=== PATIENT | male | born 1965 | race Caucasian/White ===

== ENCOUNTER 2023-04-26 14:49 | Outpatient (CLI) | payer BC, SELFPAY | END 2023-04-26 14:50 | disposition home or self-care (01) | LOC: LONREF 14:49 | PROVIDERS: Visit Provider Family Medicine | DX: E78.5 Hyperlipidemia, unspecified (principal); I10 Essential (primary) hypertension | CPT/HCPCS: 80061 ==

== ENCOUNTER 2024-02-27 22:10 | Emergency (ER) | payer BC, SELFPAY ==
[2024-02-27 22:17] VITALS: BP 206/98; PULSE 68; RESP 18; TEMP 36.3; O2SAT 96; BMI 38.0
--- NOTE | 2024-02-27 22:44 | ED_ITS ---
HPI - General Adult General Time Seen by Provider: 22:44 Date Seen: 02/27/24 Chief complaint: Ear/Nose/Throat Problem Stated complaint: sinus infection Time Seen by Provider: 02/27/24 22:44 Source: patient, RN notes reviewed and old records reviewed Mode of arrival: ambulatory Limitations: no limitations History of Present Illness HPI narrative: 58-year-old male who comes in today with upper respiratory symptoms for 4 days. He complains of nasal congestion and feeling of facial fullness, sore throat, cough. No fevers, no nausea, vomiting, diarrhea. Has been taking Tylenol and started using Afrin today. Concerned about possible sinus infection. Related Data Previous Rx's Medication Instructions Recorded atorvastatin 80 mg tablet 80 mg PO QHS #90 tabs 03/22/23 metoprolol succinate 50 mg 75 mg (1.5 x 50 mg) PO QDAY #135 04/08/23 tablet,extended release 24 hr tabs lisinopril 20 mg tablet 20 mg PO BID #180 tabs 04/26/23 metoprolol succinate 100 mg See Rx Instructions PO .ud #135 04/26/23 tablet,extended release 24 hr tabs fluticasone propionate 50 2 spray intranasal DAILY #16 grams 02/27/24 mcg/actuation nasal spray,suspension (Flonase Allergy Relief) Allergies Allergy/AdvReac Type Severity Reaction Status Date / Time Penicillins Allergy Mild Rash Verified 02/27/24 22:20 Review of Systems Status of ROS: Reports: 10 or more systems reviewed and unremarkable except as noted in History and below [facility] Medical History History of atrial fibrillation ?Z86.79 - Personal history of other diseases of the circulatory system (ICD- 10) Surgical History History of left-sided carotid endarterectomy ?Z98.890 - Other specified postprocedural states (ICD-10) S/P left inguinal hernia repair ?Z98.890 - Other specified postprocedural states (ICD-10) ?Z87.19 - Personal history of other diseases of the digestive system (ICD-10) S/P CABG x 2 ?Z95.1 - Presence of aortocoronary bypass graft (ICD-10) S/P cholecystectomy ?Z90.49 - Acquired absence of other specified parts of digestive tract (ICD- 10) Social History (Updated 04/27/23 @ 08:22 by Katty Cole ~ MATERIAL REPROCESSING ASSOCIATE, MATERIAL REPROCESSING ASSOCIATE) What is your current living situation?: I presently have a place to live Problems where you live: no known problems In the past 12 months, utilities in danger of being shut off: no In past 12 months, lack of transportation kept you from medical appts, meetings, work, or getting things needed for daily living: no In the past 12 mos, have been you worried that your food would run out before you had money to buy more?: never true In the past 12 mos, the food you bought just didn't last and you didn't have money to buy more?: never true Smoking Status: Never smoker Do you use any of these nicotine containing products: None Second hand tobacco smoke exposure: No How often do you have a drink containing alcohol: 2-3 times a week AUDIT-C Alcohol total score: 3 Non-prescribed substance use: denies use How often does anyone, including family, friends and others, physically hurt you : never How often does anyone, including family, friends and others, insult or talk down to you: never How often does anyone, including family, friends and others, threaten you with harm: never How often does anyone, including family, friends and others, scream or curse at you: never Little interest or pleasure in doing things: not at all Feeling down, depressed, or hopeless: not at all Exam Narrative: Exam Narrative: General: Well-developed and well-nourished, no acute distress Head: Atraumatic and normocephalic Eyes: Pupils are equal reactive, extraocular motions intact, conjunctiva clear ENT: External nose and ears are normal, posterior pharynx without erythema or exudate Neck: No midline cervical tenderness, full spontaneous range of motion the neck, trachea midline, no adenopathy Heart: Regular rate and rhythm no murmurs or thrills Lungs: Clear to auscultation bilaterally without wheezes or crackles Abdomen: Soft, nontender, nondistended with active bowel sounds Musculoskeletal: No tenderness, deformity, or edema Neurologic: Awake, alert, and oriented x3, no gross focal neurologic deficits, cranial nerves intact as tested Psych: Mood and affect are appropriate Skin: No rashes Const: Vital Signs, click to edit/add: Vital Signs - 24 hr 02/27/24 22:17 Temperature 97.3 F L Pulse Rate [Pulse Oximeter] 68 Respiratory Rate 18 Blood Pressure [Ri ght Upper Arm] 206/98 H Pulse Oximetry 96 Oxygen Delivery Me thod Room Air Course Course ED Course: Patient seen and examined, prior records are reviewed including most recent primary care office visit from April 2023 which was follow-up of multiple medical issues including history of coronary disease which been stable since bypass in 2016, history of carotid arterectomy also in 2017, hypertension hyperlipidemia at that time blood pressure was poorly controlled metoprolol was increased. No history of smoking, does have limited access to affordable healthcare. Patient presents today with upper respiratory symptoms of nasal congestion, sore throat, and cough. No fever, no severe facial pain does feel some facial fullness, mild tenderness of the maxillary sinuses bilaterally. Discussed with patient as he has no fever, no severe pain, easily at 4 days of symptoms without adequate trial of decongestant, antibiotics not indicated at this time. Patient will be given nasal inhaler, recommend saline rinses, and also prednisone. Follow-up with primary care symptoms not significantly improved in the next 5-7 days, or develops worsening facial pain, or fevers. Vital Signs Vital signs: Initial Vital Signs Temperature 97.3 F L 02/27/24 22:17 Temperature Source Temporal Artery Scan 02/27/24 22:17 Pulse Rate 68 02/27/24 22:17 Respiratory Rate 18 02/27/24 22:17 Blood Pressure 206/98 H 02/27/24 22:17 Blood Pressure Mean 134 H 02/27/24 22:17 Blood Pressure Position Sitting 02/27/24 22:17 Pulse Oximetry 96 02/27/24 22:17 Oxygen Delivery Method Room Air 02/27/24 22:17 Vital Signs Temperature 97.3 F L 02/27/24 22:17 Pulse Rate 68 02/27/24 22:17 Respiratory Rate 18 02/27/24 22:17 Blood Pressure 206/98 H 02/27/24 22:17 Pulse Oximetry 96 02/27/24 22:17 Oxygen Delivery Method Room Air 02/27/24 22:17 Temperature 97.3 F L 02/27/24 22:17 Pulse Rate 68 05/12/24 22:17 Respiratory Rate 18 02/27/24 22:17 Blood Pressure 206/98 H 02/27/24 22:17 Pulse Oximetry 96 02/27/24 22:17 Oxygen Delivery Method Room Air 02/27/24 22:17 Medical Decision Making Medical Records Medical records reviewed: Yes I reviewed the patient's medical records Lab Data Lab results reviewed: Yes I reviewed the patient's lab results Discharge Plan Discharge Clinical Impression: Acute viral sinusitis, Acute upper respiratory infection Patient Disposition: Home, Self-Care Condition: Stable Instructions: Rhinosinusitis (DC), Viral Syndrome (ED) Additional Instructions: Take prednisone as prescribed use nasal inhaler Use saline rinses or Neti pot daily Follow-up with your primary care doctor in 5-7 days if not better Activity Level: Activity as Tolerated Discharge Diet: Regular Prescriptions: New fluticasone propionate [Flonase Allergy Relief] 50 mcg/actuation spray,suspension 2 spray intranasal DAILY Qty: 16 2RF Rx Instructions: administer into each nostril No Action lisinopril 20 mg tablet 20 mg PO BID Qty: 180 3RF metoprolol succinate 100 mg tablet extended release 24 hr See Rx Instructions PO .ud Qty: 135 3RF Rx Instructions: 100 mg QAM, and 50 mg at HS orally UD; atorvastatin 80 mg tablet 80 mg PO QHS Qty: 90 3RF metoprolol succinate 50 mg tablet extended release 24 hr 75 mg PO QDAY Qty: 135 0RF Follow Up/Referrals: Provider,Not a Local [Primary Care Provider] - Stand Alone Forms: MyHealth Info Instructions
[2024-02-27 23:19] LABS: PCR FLU A Negative PCR FLU A (Negative); PCR FLU B Negative PCR FLU B (Negative); PCR RSV Negative PCR RSV (Negative); SARS PCR* Negative SARS-CoV-2 (Negative)
== END 2024-02-27 23:20 | disposition home or self-care (01) ==
LOC: ED 22:59
PROVIDERS: Emergency Provider Family Medicine; PCP Family Medicine
DX: J32.9 Chronic sinusitis, unspecified (principal); B97.89 Other viral agents as the cause of diseases classified elsewhere; J06.9 Acute upper respiratory infection, unspecified
CPT/HCPCS: 87631; 99282; 99283; 99284

== ENCOUNTER 2024-07-17 08:29 | Outpatient (CLI) | payer BC, SELFPAY | END 2024-07-17 08:30 | disposition home or self-care (01) | PROVIDERS: PCP Family Medicine; Visit Provider Family Medicine | DX: E78.2 Mixed hyperlipidemia (principal); I10 Essential (primary) hypertension; Z12.5 Encounter for screening for malignant neoplasm of prostate; Z13.29 Encounter for screening for other suspected endocrine disorder | CPT/HCPCS: 80048; 80061; 84439; G0103 ==

== ENCOUNTER 2025-10-12 11:13 | Outpatient (CLI) | payer BC, SELFPAY | END 2025-10-12 11:14 | disposition home or self-care (01) | PROVIDERS: PCP Family Medicine; Visit Provider Family Medicine | DX: I10 Essential (primary) hypertension (principal); E78.2 Mixed hyperlipidemia; E03.9 Hypothyroidism, unspecified; Z12.5 Encounter for screening for malignant neoplasm of prostate | CPT/HCPCS: 80048; 80061; 84443; G0103 ==